=== PATIENT | male | born 1960 | race Caucasian/White ===

== ENCOUNTER 2017-06-14 10:45 | Emergency (ER) | payer BC ==
[~2017-06-14] VITALS: Ht 188 cm; Wt 90.7 kg
[~2017-06-14 10:45] MED LIST: GENTAMICIN O5 ML/BOT OP; VISINE 15 ML15 ML OP
--- NOTE | 2017-06-14 10:59 | Emergency Room Report ---
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 Clinical Suspician of Infection? Mental Status: Sepsis Risk: Have you (or family members/close friends) recently traveled outside the [place]? If Yes, where/when: Have you had exposure to infectious disease within the past month? TB? Other? Specify: 57 years old white male aguilar was vaccinating cows when his LEFT index fingers got caught between the gate and the cow had. The skin was degloved. He has no loss of movement. There is an avulsion of the skin from the nail bed to the proximal phalanx. He is up-to-date on his tetanus vaccine. Source patient, RN notes reviewed, family Exam Limitations no limitations ALLERGIES Coded Allergies: NO KNOWN ALLERGIES (06/14/17) Home Medications Reported Medications GENTAMICIN SULFATE (GENTAMICIN 0.3% OPH SOLN) 2 DROP OP QID TETRAHYDROZOLINE HCL (Visine 15 Ml) 15 ML OP PRN History Medical History General Angina: No IA: No Hypertension? No Hyperlipidemia? No CHF? No COPD? No Asthma? No CVA? No Seizures? No Diabetes? No GB Disease: No MRSA? No TB? No Cancer? No Immunization Hx DT/Tetanus 02/14/11 Surgical Hx Previous Surgery?Y CYST REMOVED FROM LIP SPLINTER FROM RIGHT HAND CYST REMOVED FROM CHEST Social History Alcohol Alcohol: Yes Review of Systems All Other Systems Reviewed and Negative Constitutional no symptoms reported Eyes no symptoms reported ENT no symptoms reported. Respiratory no symptoms reported Cardiovascular no symptoms reported Gastrointestinal no symptoms reported Genitourinary no symptoms reported. Musculoskeletal see HPI Skin see HPI (degloving injury of the LEFT i) Psychiatric/Neurological no symptoms reported Physical Exam Vital Signs Vital Signs Date Time Temp Pulse Resp B/P Pulse O2 O2 Flow FiO2 Ox Delivery Rate 06/14 1051 99.0 78 18 188/100 98 - WBC >12,000 or <4,000 or 10% bands? 2 or more SIRS Criteria Met? B/P:188/100 MAP:129 Creatinine >2.0? UA output<0.5ml/kg/hr for 2 hrs? Platelet count >100,000? Lactate >2.0mmol/1? INR >1.2 or PTT > than 60 sec? Evidence of Organ Dysfunction? Provider documented clinical suspician of infection? N Sepsis Criteria Count: 0 Sepsis Risk: Low Sepsis Risk General Appearance normal appearance, WD/WN Eye Exam - bilateral eye normal exam, bilateral eye PERRL, bilateral eye EOMI Ear, Nose, Throat hearing grossly normal, normal ENT inspection Neck normal inspection, non-tender, supple, full range of motion Respiratory Status Yes: trachea midline, chest symmetrical, non tender chest. No: respiratory distress. Lung Sounds bilateral: normal breath sounds, lungs clear. Cardiovascular normal exam, regular rate/rhythm, no peripheral edema, no gallop, no JVD, no murmur, no rub, normal peripheral pulses Gastrointestinal normal bowel sounds, normal exam, non tender, soft, no organomegaly Extremities non-tender, normal range of motion, normal inspection Neurologic alert, manager harbor II-XII nml as tested, normal exam, oriented x 3 Mental status normal mood/affect Skin degloving injury of the distal LEFT index, stands from the nailbed to the proximal phalanges, involving skin and subcutaneous tissue. There was 2 cow hair removed. Medical Decision Making LABS/Meds/Orders Pt receiving controlled substance in ED? No Results/Orders Current Medication Orders Sig/Marline Start time Last Medication Dose Route Stop Time Status Admin Lidocaine HCl 0 .STK-MED ONE 06/14 1056 DC .ROUTE Orders Procedure Date/time Status [id number] (INDEX)-3 VIEWS 06/14 1054 Active XRAY/CT/US XRAY/CT/US XRAY finger(s) XR interpretation by reviewed by me Xray Results no fracture seen Comment No fracture no radiopaque foreign body Procedures Laceration/Wound Repair Laceration/Wound Repair Risks/benefits discussed with pt/guardian? Yes Tetanus status up to date Wound Location finger(s) Wound Length (cm) 4 Wound's Depth, Shape superficial, sucutaneous tissue, irregular, flap(s), nail-avulsed Wound Explored foreign body removed Risk of retained FB explained to pt/guardian? Yes Irrigated w/ Saline (ccs) 10 Wound Prep Betadine, Hibiclens Anesthesia 2% Lidocaine Volume Anesthetic (ccs) 10 Wound Debrided none Wound Repaired With sutures Suture Size/Type 4:0 Layer Closure No Total Number Sutures 6 Sterile Dressing Applied Yes Splint Applied Yes Type of Splint Applied finger splint Sling Applied Yes Progress Understood technique the patient underwent a finger block. The wound was irrigated foreign bodies were removed until no more foreign bodies were seen. The patient was advised that he is a high risk for infection finger loss and sepsis. Using Ethilon 4.0 placed 4 stitches at the bottom on the side of the flap. Using Ethilon 3.0 placed 2 stitches into the nailbed for near perfect approximation of the flap. The patient tolerated the procedure, in fact he experienced less pain. He was reported against signs of infection, need to rest and elevate the finger, take antibiotics as instructed, and follow-up with Dr. Xiong in 2 days. IV Sedation Airway Assessment Risks/benefits discussed with pt/guardian? No Departure Departure Time of Disposition 1123 Disposition DC Home or Self Care(routine) Clinical Impression Primary Impression: Avulsion of skin of finger without complication Condition STABLE Referrals Arie Xiong MD (PCP/Family) Additional Instructions Again the patient was instructed to watch for signs of infection, anxiety. That skin closure has a high percentage of non-healing and sepsis. He has to rest and elevate his finger take antibiotics as instructed and follow up with Dr. Xiong in 2 days. The patient and his verbalized understanding. Discharge Counseling Counseled pt/family regarding diagnosis, test results, medications/RX, home care, follow up needs Prescriptions Current Visit Scripts SULFAMETHOXAZOLE W/TRIMETHOPRI (Bactrim Ds Tab) 1 TABLET PO BID #20 TAB Clindamycin Hcl (Clindamycin 300MG) 300 MG PO Q8 #21 CAP IBUPROFEN (Motrin 600MG) 600 MG PO Q6HP PRN pain #20 TAB ED Critical Care Critical Care No If Critical Care minutes are documented, the time involved in the performance of seperately reportable procedures was not counted toward critical care time documented. I directly delivered medical care to this critically ill and/or injured patient. Timely evaluation and treatment was necessary to address the significant organ system(s) dysfunction present in this patient. at 1127
[2017-06-14] MEDS ORDERED: BACTRIM DS 8001 TA1 PO (11:27)
[2017-06-14] MEDS ORDERED: MOTRIN 600MG.600 MG PO (11:27)
[2017-06-14] MEDS ORDERED: CLINDAMYCIN HC300 MG PO (11:27)
[2017-06-14 11:37] VITALS: BP 178/90
--- NOTE | 2017-06-14 13:19 | RADIOLOGY REPORT PS360 ---
[id number] (INDEX)-3 VIEWS CLINICAL INDICATION: Pain following injury trauma ORDERING PHYSICIAN: Blake Alfred MD PATIENT AGE: 57 years COMPARISON: None FINDINGS: Minimal calcifications noted along the dorsal distal aspect of the middle phalanx along the ulnar aspect of the DIP. These are probably related to chronic changes. No definite acute fracture or dislocation or radiopaque foreign body evident. IMPRESSION: No acute finding
== END 2017-06-14 11:38 | disposition home or self-care (01) ==
LOC: ER 10:45
PROC: 0HQGXZZ Repair Left Hand Skin, External Approach (ICD-10-PCS; principal; 2017-06-14)
DX: S61.321A Laceration with foreign body of left index finger with damage to nail, initial encounter (principal); W23.0XXA Caught, crushed, jammed, or pinched between moving objects, initial encounter; Y92.73 Farm field as the place of occurrence of the external cause